=== PATIENT | female | born 1960 | race Caucasian/White ===

== ENCOUNTER 2017-02-23 13:49 | Emergency (ER) | payer SELFPAY ==
[~2017-02-23] VITALS: Ht 157.5 cm; Wt 70.6 kg
[2017-02-23 14:32] LABS: HEMATOCRIT 38.3 % (36.0-46.0); MCH 31.9 PG (29.0-34.0); MCHC 35.2 G/DL (30.0-36.0); MCV 90.5 FL (83-99); MEAN PLAT.VOLUME 9.8 uM^3 (9.5-12.4); PLATELET COUNT 219 K/uL (156-360); RBC DIS.WIDTH-CV 12.4 % (11.8-14.6); RBC DIS.WIDTH-SD 40.8 % (39-53); RED BLOOD COUNT 4.23 M/uL (3.80-5.20); WHITE BLOOD COUNT 10.7 K/uL (4.1-10.2)
[2017-02-23 14:42] LABS: CHLORIDE 107 mEq/L (99-109); POTASSIUM 4.5 mEq/L (3.7-5.4); SODIUM 139 mEq/L (136-147)
[2017-02-23 14:44] LABS: GLUCOSE 88 mg/dL (70-99)
[2017-02-23 14:45] LABS: ANION GAP 8 MEQ/L (2-14)
[2017-02-23 14:49] LABS: UREA NITROGEN (BUN) 18 mg/dL (9-23)
[2017-02-23 14:52] LABS: TROP-I INTERPRETATION NEGATIVE; TROPONIN-I < 0.01 ng/mL (0.0-0.30)
[2017-02-23 14:57] LABS: QUANTITATIVE HCG 4.1 MIU/ML
[2017-02-23 15:01] LABS: GFR ESTIMATE (CALCULATED) > 59 mL/min/
[2017-02-23 16:28] VITALS: BP 110/84
== END 2017-02-23 16:34 | disposition home or self-care (01) ==
LOC: EME 13:49
PROVIDERS: Emergency Medicine
DX: S09.90XA Unspecified injury of head, initial encounter (principal); S01.111A Laceration without foreign body of right eyelid and periocular area, initial encounter; V18.0XXA Pedal cycle driver injured in noncollision transport accident in nontraffic accident, initial encounter; Y93.55 Activity, bike riding
CPT/HCPCS: 70450; 71010; 80048; 84484; 84702; 85027; 93005; 99281; 99285